=== PATIENT | male | born 1950 | race Caucasian/White ===

== ENCOUNTER → 2018-03-11 | Outpatient (REF) | payer MEDICARE ==
[~2018-03-11] MED LIST: ANTI-DEPRESSANT; BLOOD THINNER; CALC-515 PO; CIPR-344 PO; FAMO20TA28 PO; HYDR-385 PO; HYDRO25 PO; IBUP800T37 PO; NIT3 SL; OMEP-218 PO; ONDA4TAB PO; OXYC-865 PO; SUC1 PO; [UNRECOGNIZED DRUG - CODE] PO
== END ==
LOC: ZZSENDIN 12:00
PROVIDERS: ATTEND Family Medicine
DX: D22.5 Melanocytic nevi of trunk (principal)
CPT/HCPCS: 88305

== ENCOUNTER → 2018-08-18 | Outpatient (REF) | payer MEDICARE | LOC: ZZIMHLAB 11:31 | PROVIDERS: ATTEND Physician Assistant | DX: R31.0 Gross hematuria (principal) | CPT/HCPCS: 87088 ==

== ENCOUNTER → 2018-08-19 | Outpatient (CLI) | payer MEDICARE ==
[~2018-08-19] MED LIST changes: +IOPAMIDOL 76% 100 ML INFUS BTL 100 ML ONE
--- NOTE | 2018-08-19 16:19 | RADIOLOGY IMAGING REPORT ---
FACILITY: [facility] PATIENT NAME: Naga Millan : 1950 MR: [id number] V: [id number] EXAM DATE: ORDERING PHYSICIAN: CHAD CARLOS TECHNOLOGIST: Location: [facility] Patient: Naga Millan : 1950 Visit/Account:[id number] Date of Sevice: 08/19/2018 CT ABDOMEN PELVIS W/ CON HISTORY: Gross hematuria TECHNIQUE: CT abdomen and pelvis with intravenous contrast. Contiguous axial images of the abdomen and pelvis was performed from the lung bases to the symphysis pubis. One of the following dose optimization techniques was utilized in the performance of this exam: Autom ated exposure control; adjustment of the mA and/or kV according to the patient's size; or use of an i terative reconstruction technique. Specific details can be referenced in the facility's radiology C T exam operational policy. CONTRAST: 75 cc of Isovue-370 COMPARISON: None. FINDINGS: Visualized lung bases: Negative. Hepatobiliary: There is fatty infiltration of the liver. Spleen: Negative. Adrenals: Negative. Kidneys/: There is a 3.7 x 3.3 x 3.2 cm mass within a right posterior lateral bladder diverticulum highly concerning for malignancy. The diverticulum is anterior to the right ureteral orifice in the 7 o'clock position of the bladder. No definitive transmural invasion.. Right ureter is nonobstruct ed. No other discrete bladder masses are seen. Ureters are decompressed. Small nonobstructing stones are noted in both kidneys. 6 x 5 mm nonobstructing stone is noted midpol e left kidney. 2 mm nonobstructing stone is noted lower pole right kidney. Some smaller nonobstruct ing stones are noted in the right kidney. Benign cyst superior lateral pole right kidney measures 8 mm. Pancreas: Negative. GI: Negative. Vessels/spaces/nodes: Atherosclerotic calcification is noted. Some small shotty mesenteric and retr operitoneal lymph nodes are noted. Bones/soft tissues: Degenerative changes are noted the spine. 5 mm sclerotic focus right iliac bone image 102 is noted. IMPRESSION: 1. 3.7 x 3.3 x 3.2 cm mass within the right posterior lateral bladder diverticulum highly concerning for malignancy. The mass fills the bladder diverticulum in the 7 o'clock position of the bladder an d is anterior to the right ureteral orifice. Right ureter is nonobstructed. Recommend urology consu ltation for management. 2. Small nonobstructing stones are noted in both kidneys. Report Dictated By: Jay Salamanca MD at 08/19/2018 3:58 PM Report E-Signed By: Jay Salamanca MD at 08/19/2018 4:14 PM WSN:[email or web address]
== END ==
LOC: CT 07:14
PROVIDERS: ATTEND Physician Assistant
DX: N20.0 Calculus of kidney (principal); N32.3 Diverticulum of bladder
CPT/HCPCS: 74177; Q9967

== ENCOUNTER 2018-08-27 00:39 | Day surgery (SDC) | payer MEDICARE ==
[2018-08-26 09:58] VITALS: BP 122/80
[2018-08-26 14:05] LABS: INR 1.04
--- NOTE | 2018-08-26 19:23 | HISTORY AND PHYSICAL ---
DATE OF ADMISSION: August 27, 2018 CHIEF COMPLAINT Hematuria with right bladder diverticular mass. HISTORY OF PRESENT ILLNESS Patient is a 68-year-old white male who experienced gross painless hematuria on the of this month. He sought evaluation with his primary care provider, Prema Terrazas, who obtained a urinalysis and empirically started him on Augmentin without improvement. She followed this up with a CT scan, which revealed a right lateral posterior bladder diverticulum with a mass in the lumen. The diverticulum measured approximately 3.7 x 3.3 cm. There was no other evidence of filling defects in the kidneys or ureters; however, this was not done with delayed contrast. He was noted to have bilateral kidney stones with three punctate stones on the right and an 8 x 7 mm stone in the lower pole on the left side. There was no evidence of metastatic disease or other adenopathy. The patient was seen in the Urology Clinic on the . At that time, his urine was grossly bloody. His physical exam was unremarkable. He returned to the clinic on the and underwent flexible cystoscopy in the office, which revealed a normal-appearing bladder except for a diverticulum on the right posterior floor approximately 1 cm anterolateral to the right ureteral orifice. The ureteral orifices were both effluxing clear urine. The opening of the diverticulum was approximately 1 to 1.5 cm across. Inside the diverticulum was active bleeding tissue; however, I could not get an excellent view secondary to the active bleeding. There did appear to be some papillary-appearing tissue at the base. These findings were discussed with the patient and his . 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 The current plan is to perform anesthetic cystoscopy to get the tissue diagnosis, and then pending this, to discuss definitive treatment which will likely be a diverticulectomy. PAST MEDICAL HISTORY 1. Hypercholesterolemia. 2. Hypertension. 3. Gastroesophageal reflux disease. 4. Low back pain secondary to disk disease. 5. Diverticulosis. 6. ED. 7. Kidney stones. PAST SURGICAL HISTORY 1. Skin cancer resection. 2. Tonsillectomy. 3. Right scrotal exploration. SOCIAL HISTORY Patient is , lives in [place], [place]. He has one pack per day history of smoking for 50 years, but quit approximately one year ago. ALLERGIES No known drug allergies. CURRENT MEDICINES 1. Omeprazole. 2. Pravastatin. 3. Viagra. 4. Multivitamins. 5. Saw palmetto. REVIEW OF SYSTEMS Patient denies chest pain, shortness of breath, productive cough, nausea, vomiting, abdominal pain, change in weight, bleeding disorder, or chronic headaches. PHYSICAL EXAMINATION GENERAL: Patient is a well-developed, well-nourished white male in no acute distress. HEENT: Normocephalic, atraumatic. CHEST: Clear to auscultation bilaterally. CARDIOVASCULAR: Regular rate and rhythm. ABDOMEN: Soft, nontender. No masses are palpated. GENITOURINARY: Deferred to the OR. EXTREMITIES: Without clubbing, cyanosis, or edema. NEUROLOGIC: Nonfocal. IMPRESSION A 68-year-old white male with a long history of smoking, now with a gross painless hematuria emanating from a right posterolateral bladder diverticulum with likely a transitional cell carcinoma. PLAN Will perform anesthetic cystoscopy, biopsy, and fulguration of lesion in right diverticulum. Pending the results of this, he will likely need a bladder diverticulectomy. [facility]
[~2018-08-27] VITALS: Ht 185.4 cm; Wt 83.9 kg
[~2018-08-27 00:39] MED LIST changes: -IOPAMIDOL 76% 100 ML INFUS BTL 100 ML ONE; +LACT1CAP6 PO; +LUTE1CAP6 PO; +MULT-60 PO; +OMEP-137 PO; +PRAV20TA65 PO; +SAW450CA3 PO; +SILD100T59 PO
[2018-08-27 06:37] VITALS: BP 141/95
[2018-08-27] MEDS ORDERED: NORMOSOL R SOLN(*) 1000 ML BAG 1,000 ML IV PRN (06:45)
[2018-08-27] MEDS ORDERED: ceFAZolin(*) 1 GM VIAL 1 GM in NS(*) 0.9% 100 ML MINI-BAG 100 ML IVPB ONE (06:45)
[2018-08-27] MEDS ORDERED: MIDAZOLAM 2 MG/2 ML VIAL IVP PRN (06:45)
[2018-08-27] MEDS ORDERED: LIDOCAINE/SOD BICARB 8.4% SYR ID ONE (06:45)
[2018-08-27] MEDS ORDERED: ONDANSETRON 4 MG/2 ML VIAL ONE (06:54)
[2018-08-27] MEDS ORDERED: LIDOCAINE MPF 1% 5 ML VIAL ONE (06:54)
[2018-08-27] MEDS ORDERED: METOCLOPRAMIDE 10 MG/2 ML SDV ONE (06:54)
[2018-08-27] MEDS ORDERED: DEXAMETHASONE SOD 4 MG/ML VIAL ONE (06:54)
[2018-08-27] MEDS ORDERED: PROPOFOL EMUL(*) 10MG/ML 20 ML 20 ML ONE (06:54)
[2018-08-27] MEDS ORDERED: fentaNYL CITR 100 MCG/2 ML AMP ONE (06:56)
[2018-08-27] MEDS ORDERED: BELLADONNA ALK/OPIUM 60MG SUPP PR ONE (07:31)
[2018-08-27] MEDS ORDERED: HYDROCORTISONE 1% CR 28.35 GM TP ONE (07:32)
[2018-08-27] MEDS ORDERED: IOPAMIDOL 20 ML VIAL IT ONE ×2 (08:40→08:41)
[2018-08-27] MEDS ORDERED: HYDR-653 PO (09:33)
[2018-08-27] MEDS ORDERED: SULF-198 PO (09:34)
[2018-08-27] MEDS ORDERED: DOCU-416 PO (09:34)
[2018-08-27] MEDS ORDERED: PHEN200T32 PO (09:35)
--- NOTE | 2018-08-27 09:58 | RADIOLOGY IMAGING REPORT ---
FACILITY: [facility] PATIENT NAME: Naga Millan : 1950 MR: [id number] V: [id number] EXAM DATE: ORDERING PHYSICIAN: ISA VÁSQUEZ TECHNOLOGIST: Location: [facility] [place] Patient: Naga Millan : 1950 Visit/Account:[id number] Date of Sevice: 08/27/2018 RETROGRADE PYELOGRAM Indication: RETROGRADE Comparison: None. Findings: Bilateral retrograde ureterograms are available. Contrast is seen in both ureters and rafiq ecting systems. IMPRESSION: Images from a bilateral retrograde ureterogram. Radiation dose: AK 23.38 mGy Report Dictated By: Travis Oquendo at 08/27/2018 9:50 AM Report E-Signed By: Travis Oquendo at 08/27/2018 9:51 AM WSN:[email or web address]
--- NOTE | 2018-08-27 10:00 | NUR ---
AT BEDSIDE. PT. AND HAVE REMAINING QUESTIONS ABOUT PROCEDURE AND KIDNEY STONES. INFORMED WILL HAVE DR. VÁSQUEZ COME BACK AFTER PROCEDURE TO TALK WITH THEM.
--- NOTE | 2018-08-27 10:10 | NUR ---
PT. MAINTAINING SPO2 ON RA. DENIES PAIN OR NAUSEA. TOLERATING PO INTAKE. REQUESTING DISCHARGE.
--- NOTE | 2018-08-27 10:21 | NUR ---
ORTHOSTATIC VITALS WNL. DENIES SYMPTOMS. DISCHARGE INSTRUCTIONS REVIEWED AND PT. ALLOWED TO DRESS.
[2018-08-27 10:22] VITALS: BP 132/89
[2018-08-27 10:24] VITALS: BP 131/75
--- NOTE | 2018-08-27 10:24 | OPERATIVE REPORT 1 ---
EVENT DATE: August 27, 2018 SURGEON: Leo Nixon MD ANESTHESIOLOGIST: Isma Haas MD ANESTHESIA: General. PREOPERATIVE DIAGNOSIS Gross painless hematuria with right bladder diverticulum. POSTOPERATIVE DIAGNOSIS 1. Gross painless hematuria. 2. Small superficial bleeding vessel in right diverticulum. 3. Retained blood clots in diverticulum. PROCEDURE PERFORMED 1. Rigid cystoscopy with irrigation and evacuation of clots with grasping and removal of clots as well. 2. Narrow-band imaging cystoscopy. 3. Flexible cystoscopy. 4. Fulguration of small bleeding vessel inside right posterior bladder diverticulum. 5. Bilateral retrograde pyelograms. ESTIMATED BLOOD LOSS 10 cc. IV FLUIDS Crystalloids. SPECIMENS None. DRAINS 16-Guyanese Weiss catheter. FINDINGS 1. No bladder tumors or lesions identified in bladder or diverticulum with both rigid, flexible and narrow band imaging. 2. Tiny bleeding vessel inside right bladder diverticulum on mucosa. 3. Normal bilateral retrograde pyelograms. CONDITION The patient was taken to the recovery room awake and in stable condition. STATEMENT OF MEDICAL NECESSITY The patient is a 68-year-old white male who was referred to the urology clinic after a 10 day history of gross painless hematuria. The patient has a long smoking history. A CT scan was performed which showed a right posterior wall bladder diverticulum approximately 1 cm above and lateral to the right ureteral orifice with hyperdense filling defect consistent with tumor or blood clot. He had no hydronephrosis or ureteral obstruction. He did have bilateral kidney stones. He had 3 punctate stones on the right and an 8 x 7 mm stone on the left lower pole. There were no renal parenchymal lesions or other associated anomaly. His prostate was mildly enlarged. The patient underwent flexible cystoscopy in the office which revealed bleeding and blood clot from the diverticulum. After several minutes of manipulation, I could not advance the scope inside the diverticulum in the office. Therefore, he is being brought to the operating room for planned anesthetic cystoscopy, biopsy, and fulguration of tumor and/or bleeding vessels. DESCRIPTION OF PROCEDURE The patient was brought to the operating room. After general anesthetic was obtained, he was placed in the dorsal lithotomy position, prepped and draped in the usual sterile manner. Anesthetic cystoscopy was performed with the 22- Guyanese rigid Olympus sheath in both the 30 and 70-degree lenses. He had normal appearing pendulous bulbar and membranous urethra. His prostate was only mildly enlarged. His bladder neck was not significantly elevated beyond a small-medium bar. Upon entering the bladder, his bladder was 1+ trabeculated. He had slit- like ureteral orifices, both were effluxing clear urine. A previously noted bladder diverticulum was approximately 1 cm lateral and 2 cm above the right ureteral orifice. The mucosa was smooth on the outside. Inside, there appeared to be several significant blood clots and questionable foreign material. At this point, the scope was guided into the diverticulum. Several of the blood clots were visualized free floating, but would not be irrigated out. There were some in the dependent portion of the bladder which were irrigated free from the bladder. At this point, the resectoscope sheath was placed with continuous flow option on. The loop was then used to physically grab and remove the clots from the diverticulum and remove them from the bladder. At this point, reinspection of the diverticulum revealed no bladder tumors or other lesions. There was a very small bleeding mucosal vessel at approximately the 9 o'clock position. This was fulgurated using the bipolar loop. At this point, the patient's bladder was drained through the resectoscope sheath and then the standard cystoscope was placed. At this point, narrow-band imaging cystoscopy was performed in both the diverticulum and throughout the bladder using both the 30 and 70-degree lenses. This appeared completely normal as well. There was no hypervascularity or other lesions associated on regular light cystoscopy or narrow-band imaging visualization. We appeared to have excellent visualization of the entire diverticulum with the 70-degree lens. At this point, the scope was removed and the digital flexible cystoscope then placed. This was attempted to be guided into the diverticulum, but this was unsuccessful after several attempts. This scope was removed. The regular cystoscope replaced and bilateral retrograde pyelograms were performed using a 8-Guyanese cone-tip catheter and 7 cc of contrast material. Both filling and draining films were obtained. there were no filling defects along the course of the ureter and the collecting system. He had prompt drainage bilaterally. The very distal portion of each ureter was not visualized secondary to patient's positioning on the table. On direct vision of the ureteral orifices after injection showed clear efflux of contrast and urine bilaterally. There was a small amount of bleeding from the bladder neck area at the end of the cystoscopy. This was easily irrigated out the bladder with the sheath. At this point, the cystoscope was removed. A 16-Guyanese Weiss catheter was placed with 10 cc in the balloon. A B and O suppository was given at the conclusion of the case. The urine draining from the Weiss was crystal clear at the conclusion of the case. The plan will be to allow the patient to be discharged home today with his Weiss catheter out if his urine remains clear. We will plan to see him in the urology clinic in 2 to 3 weeks to discuss these results and further workup. It is unclear at this point the exact etiology of the bleeding, whether this is from this small bleeding vessel in the diverticulum or his renal calculi or possibly from a friable bladder neck. He also has an undetermined small upper tract lesion which was not visible on retrograde. The plan will be to discharge the patient home on [place], Colace, Bactrim and Pyridium. [facility]ER[facility]
--- NOTE | 2018-08-27 10:30 | NUR ---
DR. VÁSQUEZ AT BEDSIDE. PT.'S QUESTIONS AND CONCERNS ADDRESSED. IV REMOVED WITHOUT ISSUES.
== END 2018-08-27 09:47 | disposition home or self-care (01) ==
LOC: OR 00:39
PROVIDERS: ATTEND Urology
DX: R31.0 Gross hematuria (principal); N32.89 Other specified disorders of bladder; N32.3 Diverticulum of bladder
CPT/HCPCS: 36415; 52001; 52005; 74420; 81001; 85610; 85730; 87088; A9270; C1758; J0690; J1100; J2001; J2405; J2704; J2765; J3010; Q9966

== ENCOUNTER → 2018-09-09 | Outpatient (REF) | payer MEDICARE ==
[~2018-09-09] MED LIST changes: +DOCU-416 PO; +HYDR-653 PO; +PHEN200T32 PO; +SULF-198 PO
== END ==
LOC: ZZSENDIN 12:00
PROVIDERS: ATTEND Urology
DX: R31.0 Gross hematuria (principal)
CPT/HCPCS: 88108

== ENCOUNTER → 2018-10-16 | Outpatient (REF) | payer MEDICARE ==
[~2018-10-16] MED LIST changes: +IBUP600T22 PO
== END ==
LOC: ZZSENDIN 12:00
PROVIDERS: ATTEND Urology
DX: N20.0 Calculus of kidney (principal)
CPT/HCPCS: 82365; 88300